=== PATIENT | female | born 1985 | race Caucasian/White ===

== ENCOUNTER → 2020-08-06 | Outpatient (CLI) | payer OTHER ==
--- NOTE | 2020-08-06 22:34 | MR ---
EXAMINATION TYPE: MR knee LT wo con DATE OF EXAM: 08/06/2020 COMPARISON: None. HISTORY: Left knee pain x 3 mos, no trauma TECHNIQUE: Multiplanar, multisequence imaging of the left knee is performed without IV contrast. FINDINGS: MEDIAL MENISCUS: Anterior and posterior horns are intact without tear. LATERAL MENISCUS: Anterior and posterior horns are intact without tear. CRUCIATE LIGAMENTS: The anterior and posterior cruciate ligaments are intact and unremarkable. COLLATERAL LIGAMENTS: The medial collateral ligament and lateral collateral ligament complex are inta ct and unremarkable. EXTENSOR MECHANISM: Visualized quadriceps and patellar tendons are intact. EFFUSION: Tiny suprapatellar joint effusion. POPLITEAL CYST: Small to moderate-sized leaking popliteal/arias cyst measuring approximately 5.0 cm long axis sagittal image 25. TRICOMPARTMENT SPACES: Mile tricompartment joint space loss without significant spurring. CARTILAGE: Tricompartment articular cartilage is preserved. BONE MARROW SIGNAL: No focal abnormal marrow signal is appreciated. OTHER: Multiloculated cystic change posterior to the distal femoral metaphysis medially could reflect synovial cyst given superior extension from the superior region of popliteal fossa. IMPRESSION: No meniscal or ligamentous tear is seen.
== END | disposition home or self-care (01) ==
LOC: RADMRIMAIN 19:14
PROVIDERS: ATTEND Family Medicine
DX: M25.562 Pain in left knee (principal)

== ENCOUNTER → 2021-07-17 | Outpatient (CLI) | payer OTHER ==
--- NOTE | 2021-07-17 09:39 | MR ---
EXAMINATION TYPE: MR lumbar spine wo con DATE OF EXAM: 07/17/2021 COMPARISON: MRI lumbar spine January 18, 2015 HISTORY: Low back pain into lucia lower extremities TECHNIQUE: Multiplanar, multisequence imaging of the lumbar spine is performed without IV contrast. FINDINGS: Sagittal images of the lumbar spine show vertebral body heights and alignment to remain sat isfactory. The intervertebral discs demonstrate some mild desiccation at L4-L5 level. Disc space heig hts are maintained. The conus medullaris remains normal in position and signal terminating at mid L1 vertebral body level. The bone marrow signal intensity remains within normal limits. No significant n ew spurring is present. Axial images show the T12-L1, L1-L2, and L2-L3 levels to remain within normal limits. Axial images at the L3-L4 level shows stable mild broad disc bulge but the spinal canal is preserved and the bilateral neural foramina are patent. Axial images at L4-L5 level show stable mild facet degenerative changes with [id number] broad d isc bulge mildly effacing the anterior thecal sac more prominent from prior study. There is mild righ t and mild to moderate left-sided neural foraminal narrowing seen. Axial images at L5-S1 level show mild to moderate facet arthropathy. Spinal canal is preserved. The b ilateral neural foramina are patent. Paraspinal muscle bulk is preserved. 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
== END | disposition home or self-care (01) ==
LOC: RADMRIMAIN 05:58
PROVIDERS: ATTEND Family Medicine
DX: M51.36 Other intervertebral disc degeneration, lumbar region (principal)
CPT/HCPCS: 72148